=== PATIENT | male | born 1935 | race African-American/Black ===

== ENCOUNTER 2018-10-12 15:11 | Inpatient (IN) ==
[2018-10-12] MEDS ORDERED: SODIUM CHLORIDE 0.9% 500 ML IV STA (15:32)
[2018-10-12] MEDS ORDERED: PANTOPRAZOLE 40 MG VIAL IV STA (15:32)
[2018-10-12] MEDS ORDERED: SODIUM CHLORIDE 0.9% 1,000 ML IV PRN (15:33)
[2018-10-12 15:58] LABS: Basophils % 0.6 % (0.0-0.8); Eosinophils % 0.6 % (0.00-10.9); Hematocrit 19.1 VOL% (42.0-52.0); Immature Granulocytes % 0.8 %; Immature Granulocytes Absolute 0.03 #; Lymphocytes # 0.6 10*3/uL (1.4-4.0); Mean Corpuscular HGB Conc 32.5 GM/DL (32-36); Mean Corpuscular Hemoglobin 33 PG (27-34); Mean Corpuscular Volume 101.1 FL (87-102); Mean Platelet Volume 11.5 FL (9.6-12.0); Monocytes # 0.3 10*3/uL (0.11-0.8); Neutrophils # 2.6 10*3/uL (1.4-7.4); Platelet Count 111 T/CUMM (130-400); Red Blood Count 1.89 MC/CUMM (3.8-5.5); Red Cell Distribution Width 17.4 % (9.3-17.3); White Blood Count 3.6 T/CUMM (4-12)
[2018-10-12] MEDS ORDERED: ALUMINUM/MAGNES/SIMETH MAX STR 30 ML UDCUP PO PRN (16:00)
[2018-10-12] MEDS ORDERED: guaiFENesin 200 MG/10 ML UDCUP PO PRN (16:00)
[2018-10-12] MEDS ORDERED: ONDANSETRON 4 MG/2 ML VIAL IV PRN (16:00)
[2018-10-12] MEDS ORDERED: TEMAZEPAM 7.5 MG CAPSULE PO PRN (16:00)
[2018-10-12] MEDS ORDERED: chlorproMAZINE 25 MG TABLET PO PRN (16:00)
[2018-10-12] MEDS ORDERED: ACETAMINOPHEN 325 MG TABLET PO PRN (16:00)
[2018-10-12] MEDS ORDERED: BENZTROPINE 2 MG/2 ML AMP IV PRN (16:00)
[2018-10-12] MEDS ORDERED: MYLANTA/LIDO VISC 2:1 300 ML BOTTLE SWISH/SWAL PRN (16:00)
[2018-10-12] MEDS ORDERED: ALPRAZolam 0.25 MG TABLET PO PRN (16:00)
[2018-10-12] MEDS ORDERED: diphenhydrAMINE CAP 25 MG CAPSULE PO PRN (16:00)
[2018-10-12] MEDS ORDERED: MYLANTA/LIDO VISC 2:1 300 ML BOTTLE SWISH/SPIT PRN (16:00)
[2018-10-12 16:04] LABS: Hemoglobin 6.2 GM/DL (14.0-18.0); PT Patient Result 10.8 SECS
[2018-10-12 16:25] LABS: Albumin 2.7 G/DL (3.4-5.0); Bilirubin,Total 0.6 MG/DL (0.2-1.0); Calcium 8.1 MG/DL (8.5-10.1); Osmolality,Calculated 301.8 MOS/KG (273-304); Potassium 4.3 MMOL/L (3.5-5.1); Total Protein 5.8 G/DL (6.4-8.3)
[2018-10-12] MEDS ORDERED: SODIUM CHLORIDE 0.9% 1,000 ML IV STA (18:32)
[2018-10-12] MEDS: SODIUM CHLORIDE 0.9% 1,000 ML IV SCH (19:00)
[2018-10-12 20:17] LABS: Uric Acid 7.7 MG/DL (3.5-7.2)
[2018-10-13 06:15] LABS: Hemoglobin 7.2 GM/DL (14.0-18.0)
[2018-10-13] MEDS ORDERED: LIDOCAINE 100 MG/5 ML SYRINGE ONE (09:00)
[2018-10-13] MEDS ORDERED: PROPOFOL 200 MG/20 ML VIAL IV ONE (09:00)
[2018-10-13] MEDS ORDERED: PANTOPRAZOLE 40 MG VIAL IV SCH (09:30)
[2018-10-13] MEDS: SUCRALFATE 1 GM/10 ML UDCUP PO SCH ×3 (11:51→20:14)
[2018-10-13] MEDS: PANTOPRAZOLE 40 MG TABLET PO SCH (20:14)
[2018-10-13] MEDS: SODIUM CHLORIDE 0.9% 1,000 ML IV SCH (22:34)
[2018-10-14] MEDS: SODIUM CHLORIDE 0.9% 1,000 ML IV SCH (02:38)
[2018-10-14 05:36] LABS: Basophils % 0.8 % (0.0-0.8); Eosinophils # 0.2 10*3/uL (0.0-0.87); Eosinophils % 5.7 % (0.00-10.9); Hematocrit 21.2 VOL% (42.0-52.0); Immature Granulocytes % 0.8 %; Immature Granulocytes Absolute 0.02 #; Lymphocytes # 0.9 10*3/uL (1.4-4.0); Lymphocytes % 34.4 % (21.2-54.2); Mean Corpuscular HGB Conc 32.5 GM/DL (32-36); Mean Corpuscular Hemoglobin 31 PG (27-34); Mean Corpuscular Volume 96.4 FL (87-102); Mean Platelet Volume 11.4 FL (9.6-12.0); Monocytes # 0.4 10*3/uL (0.11-0.8); Monocytes % 13.7 % (1.7-12.7); NRBC # 0.03 10*3/uL; Neutrophils # 1.2 10*3/uL (1.4-7.4); Neutrophils % 44.6 % (38.7-73.9); Red Cell Distribution Width 19.5 % (9.3-17.3); White Blood Count 2.6 T/CUMM (4-12)
[2018-10-14 05:38] LABS: Hemoglobin 6.9 GM/DL (14.0-18.0); Platelet Count 72 T/CUMM (130-400)
[2018-10-14 05:56] LABS: Hypochromasia 1+; Ovalocytes Slight; Platelet Estimate Decreased
[2018-10-14] MEDS: SUCRALFATE 1 GM/10 ML UDCUP PO SCH (07:38)
[2018-10-14] MEDS ORDERED: SODIUM CHLORIDE 0.9% 1,000 ML IV PRN (08:19)
[2018-10-14] MEDS: PANTOPRAZOLE 40 MG TABLET PO SCH (08:59)
[2018-10-14 09:44] VITALS: BP 178/66
== END 2018-10-14 11:42 | disposition home or self-care (01) | DRG 378 ==
LOC: N.ED 15:11 → N.4E 15:59
PROVIDERS: ADMIT Specialist; ATTEND Specialist

== ENCOUNTER 2020-04-04 14:13 | Inpatient (IN) ==
[2020-04-04 14:59] LABS: Basophils % 0.2 % (0.0-0.8); Eosinophils % 0.2 % (0.00-10.9); Hematocrit 41.3 VOL% (42.0-52.0); Hemoglobin 13.4 GM/DL (14.0-18.0); Immature Granulocytes % 0.5 %; Immature Granulocytes Absolute 0.03 #; Lymphocytes # 0.6 10*3/uL (1.4-4.0); Mean Corpuscular HGB Conc 32.4 GM/DL (32-36); Mean Corpuscular Volume 91.6 FL (87-102); Mean Platelet Volume 12.3 FL (9.6-12.0); Monocytes % 6.5 % (1.7-12.7); Neutrophils % 82.6 % (38.7-73.9); Platelet Count 250 T/CUMM (130-400); Red Blood Count 4.51 MC/CUMM (3.8-5.5); Red Cell Distribution Width 17.2 % (9.3-17.3); White Blood Count 5.9 T/CUMM (4-12)
[2020-04-04 16:06] LABS: CKMB % 6.3 %
[2020-04-04 16:16] LABS: Troponin I 2.2 NG/ML (0.00-0.045)
[2020-04-04 16:29] LABS: Calcium 9.8 MG/DL (8.5-10.1)
[2020-04-04 16:35] LABS: Albumin 2.9 G/DL (3.4-5.0); Bilirubin,Total 0.5 MG/DL (0.2-1.0); Osmolality,Calculated 357.1 MOS/KG (273-304); Total Protein 8.9 G/DL (6.4-8.3)
[2020-04-04 16:49] LABS: Apearance,Urine CLEAR (Clear); Bilirubin,Urine Negative (Negative); Blood, Urine Negative (Negative); Glucose,Urine (UA) Negative (Negative); Ketones,Urine Negative (Negative); Mucus,Urine Occasional /LPF (Occasional); Nitrite,Urine Negative (Negative); Protein,Urine Negative; RBC,Urine 3 /HPF (0-4); Urine Color Yellow (Yellow); Urine Specific Gravity 1.015 (1.001-1.035); Urine Urobilinogen < 2.0 EU/DL (0.2-1.0); WBC,Urine 1 /HPF (0-6)
[2020-04-04] MEDS ORDERED: SODIUM CHLORIDE 0.9% 1,000 ML IV STA (17:10)
[2020-04-04] MEDS ORDERED: GLUCAGON 1 MG VIAL IM PRN (18:05)
[2020-04-04] MEDS ORDERED: ONDANSETRON 4 MG/2 ML VIAL IV PRN (18:05)
[2020-04-04] MEDS ORDERED: DEXTROSE 10% 250 ML BAG IV PRN (18:05)
[2020-04-04] MEDS ORDERED: SODIUM POLYSTYRENE SULFATE 15 GM/60 ML BOTTLE PO STA (18:05)
[2020-04-04 19:30] LABS: Thyroid Stimulating Hormone 1.73 uIU/ml (0.358-3.74)
[2020-04-04] MEDS: SODIUM BICARB INJ 100 MEQ in DEXTROSE 5% 1,000 ML IV SCH (21:25)
[2020-04-04] MEDS: HEPARIN 5,000 UNIT/1 ML VIAL SUBCUT SCH (21:46)
[2020-04-04] MEDS: ASPIRIN 325 MG TABLET PO SCH (21:47)
[2020-04-05 08:13] LABS: Ferritin 348.9 ng/ml (26-388)
[2020-04-05] MEDS: PANTOPRAZOLE 40 MG TABLET PO SCH (08:40)
[2020-04-05] MEDS: ASPIRIN 325 MG TABLET PO SCH (08:40)
[2020-04-05] MEDS: HEPARIN 5,000 UNIT/1 ML VIAL SUBCUT SCH ×2 (08:41→20:58)
[2020-04-05 09:07] LABS: CKMB % 5.3 %; Calcium 9.5 MG/DL (8.5-10.1); Osmolality,Calculated 368.6 MOS/KG (273-304)
[2020-04-05 09:08] LABS: Troponin I 1.3 NG/ML (0.00-0.045)
[2020-04-05 09:53] LABS: Basophils % 0.2 % (0.0-0.8); Eosinophils % 0.6 % (0.00-10.9); Hematocrit 35.1 VOL% (42.0-52.0); Hemoglobin 11.5 GM/DL (14.0-18.0); Immature Granulocytes % 0.6 %; Immature Granulocytes Absolute 0.03 #; Lymphocytes # 0.7 10*3/uL (1.4-4.0); Lymphocytes % 15.5 % (21.2-54.2); Mean Corpuscular HGB Conc 32.8 GM/DL (32-36); Mean Corpuscular Volume 91.4 FL (87-102); Mean Platelet Volume 10.9 FL (9.6-12.0); Monocytes % 6.9 % (1.7-12.7); Neutrophils % 76.2 % (38.7-73.9); Platelet Count 215 T/CUMM (130-400); Red Blood Count 3.84 MC/CUMM (3.8-5.5); White Blood Count 4.7 T/CUMM (4-12)
[2020-04-05 10:41] LABS: HIV Antigen/Antibody Result Nonreactive (Nonreactive); Hepatitis B Surface Ag Quant 0.13 Index; Hepatitis B Surface Ag Result Negative (Negative); Hepatitis C Virus Ab Quant 0.07 Index; Hepatitis C Virus Ab Result Negative (Negative)
[2020-04-05] MEDS: amLODIPine 10 MG TABLET PO SCH (12:43)
[2020-04-05] MEDS ORDERED: TUBERCULIN SKIN TEST 0.1 ML SYRINGE INTRADERM ONE (15:00)
[2020-04-05] MEDS: SODIUM BICARB INJ 50 MEQ in DEXTROSE 5% 1,000 ML IV SCH (15:56)
[2020-04-05] MEDS: SODIUM BICARB INJ 100 MEQ in DEXTROSE 5% 1,000 ML IV SCH (17:15)
[2020-04-05 21:15] LABS: Protein/Creatinine Ratio,Urine 0.4 RATIO
[2020-04-06] MEDS: SODIUM BICARB INJ 50 MEQ in DEXTROSE 5% 1,000 ML IV SCH ×3 (01:29→19:40)
[2020-04-06 06:14] LABS: Basophils % 0.4 % (0.0-0.8); Eosinophils % 0.9 % (0.00-10.9); Hematocrit 35.4 VOL% (42.0-52.0); Hemoglobin 11.4 GM/DL (14.0-18.0); Immature Granulocytes % 1.1 %; Immature Granulocytes Absolute 0.05 #; Lymphocytes # 0.6 10*3/uL (1.4-4.0); Lymphocytes % 12.3 % (21.2-54.2); Mean Corpuscular HGB Conc 32.2 GM/DL (32-36); Mean Corpuscular Volume 90.5 FL (87-102); Mean Platelet Volume 11.7 FL (9.6-12.0); Monocytes % 5.6 % (1.7-12.7); Neutrophils % 79.7 % (38.7-73.9); Platelet Count 211 T/CUMM (130-400); Red Blood Count 3.91 MC/CUMM (3.8-5.5); Red Cell Distribution Width 16.4 % (9.3-17.3); White Blood Count 4.7 T/CUMM (4-12)
[2020-04-06 06:41] LABS: Blood Urea Nitrogen 194 MG/DL (7-18); Calcium 8.9 MG/DL (8.5-10.1); Estimated Glom Filtration Rate 11 ML/MIN; Ferritin 366.5 ng/ml (26-388); Glucose 167 MG/DL (74-106); Osmolality,Calculated 354.8 MOS/KG (273-304)
[2020-04-06 06:43] LABS: Troponin I 0.618 NG/ML (0.00-0.045)
[2020-04-06] MEDS: amLODIPine 10 MG TABLET PO SCH (09:47)
[2020-04-06] MEDS: DEXAMETHASONE 4 MG TABLET PO SCH (09:47)
[2020-04-06] MEDS: ASPIRIN 325 MG TABLET PO SCH (09:47)
[2020-04-06] MEDS: PANTOPRAZOLE 40 MG TABLET PO SCH (09:47)
[2020-04-06] MEDS ORDERED: HEPARIN DRIP 25,000 UNITS/500 ML PREMIX IV SCH (10:00)
[2020-04-06] MEDS: carvediloL 3.125 MG TABLET PO SCH ×2 (11:27→20:21)
[2020-04-06] MEDS ORDERED: POTASSIUM CHLORIDE 20 MEQ/15 ML UDCUP PO ONE (12:00)
[2020-04-06 13:56] LABS: Osmolality, Serum 388 mOsm/kg (275 - 295)
[2020-04-06 14:41] LABS: Osmolality, Urine 512 mOsm/kg (150 - 1150)
[2020-04-06] MEDS: HEPARIN 5,000 UNIT/1 ML VIAL SUBCUT SCH (16:59)
[2020-04-07] MEDS: HEPARIN 5,000 UNIT/1 ML VIAL SUBCUT SCH ×3 (01:09→16:33)
[2020-04-07] MEDS: SODIUM BICARB INJ 50 MEQ in DEXTROSE 5% 1,000 ML IV SCH ×2 (04:05→11:41)
[2020-04-07 06:24] LABS: Calcium 7.9 MG/DL (8.5-10.1); Osmolality,Calculated 317.5 MOS/KG (273-304)
[2020-04-07 06:28] LABS: Ferritin 282.5 ng/ml (26-388)
[2020-04-07] MEDS: amLODIPine 10 MG TABLET PO SCH (09:01)
[2020-04-07] MEDS: PANTOPRAZOLE 40 MG TABLET PO SCH (09:01)
[2020-04-07] MEDS: carvediloL 3.125 MG TABLET PO SCH ×2 (09:01→20:40)
[2020-04-07] MEDS: ASPIRIN 325 MG TABLET PO SCH (09:02)
[2020-04-07] MEDS: SODIUM CHLORIDE 0.9% 1,000 ML IV SCH ×2 (14:11→21:05)
[2020-04-08] MEDS: HEPARIN 5,000 UNIT/1 ML VIAL SUBCUT SCH ×3 (00:40→16:50)
[2020-04-08 06:13] LABS: Calcium 7.1 MG/DL (8.5-10.1); Osmolality,Calculated 317.1 MOS/KG (273-304)
[2020-04-08 06:22] LABS: Ferritin 239.8 ng/ml (26-388)
[2020-04-08] MEDS: AZITHROMYCIN INJ 500 MG in SODIUM CHLORIDE 0.9% 250 ML IV SCH (09:33)
[2020-04-08] MEDS: carvediloL 3.125 MG TABLET PO SCH ×2 (09:34→21:35)
[2020-04-08] MEDS: PANTOPRAZOLE 40 MG TABLET PO SCH (09:34)
[2020-04-08] MEDS: SODIUM CHLORIDE 0.9% 1,000 ML IV SCH ×2 (09:34→22:30)
[2020-04-08] MEDS: ASPIRIN 325 MG TABLET PO SCH (09:34)
[2020-04-08] MEDS: amLODIPine 10 MG TABLET PO SCH (09:34)
[2020-04-08] MEDS ORDERED: POTASSIUM CHLORIDE 20 MEQ/15 ML UDCUP PO ONE (10:47)
[2020-04-09] MEDS: HEPARIN 5,000 UNIT/1 ML VIAL SUBCUT SCH ×3 (00:50→16:59)
[2020-04-09 06:02] LABS: Calcium 7.2 MG/DL (8.5-10.1); Osmolality,Calculated 315.5 MOS/KG (273-304)
[2020-04-09 07:04] LABS: Ferritin 213.8 ng/ml (26-388)
[2020-04-09] MEDS: amLODIPine 10 MG TABLET PO SCH (08:11)
[2020-04-09] MEDS: ASPIRIN 325 MG TABLET PO SCH (08:11)
[2020-04-09] MEDS: carvediloL 3.125 MG TABLET PO SCH ×2 (08:11→20:47)
[2020-04-09] MEDS: AZITHROMYCIN 250 MG TABLET PO SCH (08:29)
[2020-04-09] MEDS: AZITHROMYCIN INJ 500 MG in SODIUM CHLORIDE 0.9% 250 ML IV SCH (08:36)
[2020-04-09] MEDS: ACETAMINOPHEN 325 MG TABLET PO PRN ×2 (08:36→15:47)
[2020-04-09 11:48] LABS: Eosinophils # 0.1 10*3/uL (0.0-0.87); Eosinophils % 1.3 % (0.00-10.9); Immature Granulocytes % 1.6 %; Lymphocytes # 0.7 10*3/uL (1.4-4.0); Lymphocytes % 10.8 % (21.2-54.2); Mean Corpuscular HGB Conc 30.7 GM/DL (32-36); Mean Platelet Volume 11.4 FL (9.6-12.0); Monocytes % 6.5 % (1.7-12.7); Neutrophils % 79.8 % (38.7-73.9); Red Blood Count 1.68 MC/CUMM (3.8-5.5); Red Cell Distribution Width 15.9 % (9.3-17.3); White Blood Count 6.3 T/CUMM (4-12)
[2020-04-09 11:55] LABS: Hematocrit 16.3 VOL% (42.0-52.0); Platelet Count 105 T/CUMM (130-400)
[2020-04-09] MEDS ORDERED: SODIUM CHLORIDE 0.9% 1,000 ML IV PRN (12:05)
[2020-04-09] MEDS: SODIUM CHLORIDE 0.9% 1,000 ML IV SCH (12:41)
[2020-04-09] MEDS ORDERED: POTASSIUM CHLORIDE 20 MEQ/15 ML UDCUP PO ONE (15:57)
[2020-04-09] MEDS: ATORVASTATIN 40 MG TABLET PO SCH (20:47)
[2020-04-10] MEDS: HEPARIN 5,000 UNIT/1 ML VIAL SUBCUT SCH ×3 (02:21→16:06)
[2020-04-10 05:29] LABS: Basophils % 0.3 % (0.0-0.8); Eosinophils # 0.1 10*3/uL (0.0-0.87); Eosinophils % 1.3 % (0.00-10.9); Hematocrit 26.9 VOL% (42.0-52.0); Hemoglobin 8.7 GM/DL (14.0-18.0); Immature Granulocytes % 1.5 %; Immature Granulocytes Absolute 0.14 #; Lymphocytes % 10.6 % (21.2-54.2); Mean Corpuscular HGB Conc 32.3 GM/DL (32-36); Mean Corpuscular Volume 93.1 FL (87-102); Mean Platelet Volume 10.3 FL (9.6-12.0); Monocytes % 6.6 % (1.7-12.7); NRBC # 0.03 10*3/uL; Neutrophils % 79.7 % (38.7-73.9); Platelet Count 100 T/CUMM (130-400); Red Blood Count 2.89 MC/CUMM (3.8-5.5); Red Cell Distribution Width 16.5 % (9.3-17.3); White Blood Count 9.1 T/CUMM (4-12)
[2020-04-10 05:50] LABS: Hypochromasia Slight; Microcytosis 1+; Ovalocytes Slight
[2020-04-10 05:51] LABS: Platelet Estimate Decreased; Polychromasia Slight
[2020-04-10 06:23] LABS: % Iron Saturation 35.7 % (18-50); Ferritin 202.2 ng/ml (26-388)
[2020-04-10] MEDS: SODIUM CHLORIDE 0.9% 1,000 ML IV SCH ×2 (06:25→08:59)
[2020-04-10 06:30] LABS: Sedimentation Rate-Westergren 50 MM/HR (0-20)
[2020-04-10 07:04] LABS: Calcium 7.3 MG/DL (8.5-10.1)
[2020-04-10 07:11] LABS: Folate 1.8 NG/ML (5.4-24.0); Vitamin B12 279 PG/ML (211-911)
[2020-04-10] MEDS ORDERED: MAGNESIUM SULF RIDER 4 GM in PREMIX 1 EACH IV PRN (07:20)
[2020-04-10] MEDS ORDERED: MAGNESIUM SULF RIDER 2 GM in PREMIX 1 EACH IV PRN (07:20)
[2020-04-10] MEDS: amLODIPine 10 MG TABLET PO SCH (08:50)
[2020-04-10] MEDS: carvediloL 3.125 MG TABLET PO SCH (08:50)
[2020-04-10] MEDS: AZITHROMYCIN 250 MG TABLET PO SCH (08:50)
[2020-04-10] MEDS ORDERED: POTASSIUM CHLORIDE 20 MEQ TABLET PO ONE (09:00)
[2020-04-10 09:11] LABS: Hemoglobin A1 (Alkaline) 97.2 % (96.5-98.5); Hemoglobin A2 (Alkaline) 2.8 % (1.5-3.5)
[2020-04-10] MEDS: POLYETHYLENE GLYCOL POWDER 17 GM PACK PO SCH (20:15)
[2020-04-10] MEDS: FOLIC ACID 1 MG TABLET PO SCH (20:15)
[2020-04-10] MEDS: DOCUSATE SODIUM 100 MG CAPSULE PO SCH (20:15)
[2020-04-10] MEDS: ATORVASTATIN 40 MG TABLET PO SCH (20:15)
[2020-04-10] MEDS: carvediloL 6.25 MG TABLET PO SCH (20:15)
[2020-04-11 05:34] LABS: Basophils % 0.3 % (0.0-0.8); Eosinophils # 0.1 10*3/uL (0.0-0.87); Eosinophils % 1.2 % (0.00-10.9); Hematocrit 21.2 VOL% (42.0-52.0); Hemoglobin 6.9 GM/DL (14.0-18.0); Immature Granulocytes % 1.2 %; Immature Granulocytes Absolute 0.09 #; Lymphocytes # 0.9 10*3/uL (1.4-4.0); Lymphocytes % 12.5 % (21.2-54.2); Mean Corpuscular HGB Conc 32.5 GM/DL (32-36); Mean Corpuscular Volume 92.2 FL (87-102); Mean Platelet Volume 11.2 FL (9.6-12.0); Monocytes % 7.6 % (1.7-12.7); NRBC # 0.03 10*3/uL; Neutrophils % 77.2 % (38.7-73.9); Platelet Count 83 T/CUMM (130-400); Red Cell Distribution Width 16.4 % (9.3-17.3); White Blood Count 7.5 T/CUMM (4-12)
[2020-04-11 05:55] LABS: Calcium 7.1 MG/DL (8.5-10.1); Osmolality,Calculated 304.1 MOS/KG (273-304)
[2020-04-11 06:03] LABS: Eosinophils 1 % (0-10); Lymphocytes 16 % (20-55); Segmented Neutrophils 76 % (50-85); Total Cells Counted 100
[2020-04-11 06:04] LABS: Hypochromasia 2+; Microcytosis 1+; Platelet Estimate Decreased
[2020-04-11] MEDS: AZITHROMYCIN 250 MG TABLET PO SCH (08:45)
[2020-04-11] MEDS: DOCUSATE SODIUM 100 MG CAPSULE PO SCH ×2 (08:45→21:07)
[2020-04-11] MEDS: CYANOCOBALAMIN 500 MCG TABLET PO SCH (08:46)
[2020-04-11] MEDS: amLODIPine 10 MG TABLET PO SCH (08:46)
[2020-04-11] MEDS: POLYETHYLENE GLYCOL POWDER 17 GM PACK PO SCH ×3 (08:46→21:08)
[2020-04-11] MEDS: carvediloL 6.25 MG TABLET PO SCH ×2 (08:46→21:07)
[2020-04-11] MEDS: FOLIC ACID 1 MG TABLET PO SCH ×2 (08:46→21:07)
[2020-04-11] MEDS: HEPARIN 5,000 UNIT/1 ML VIAL SUBCUT SCH ×3 (08:46→16:56)
[2020-04-11] MEDS: SODIUM CHLORIDE 0.9% 1,000 ML IV SCH ×2 (12:37)
[2020-04-11] MEDS: LACTULOSE 20 GM/30 ML UDCUP PO SCH ×3 (14:59→23:09)
[2020-04-11] MEDS ORDERED: MAGNESIUM SULF RIDER 2 GM in PREMIX 1 EACH IV ONE (15:00)
[2020-04-11] MEDS ORDERED: BISACODYL 10 MG SUPP RECTAL ONE (15:00)
[2020-04-11] MEDS: ATORVASTATIN 40 MG TABLET PO SCH (21:07)
[2020-04-12] MEDS: HEPARIN 5,000 UNIT/1 ML VIAL SUBCUT SCH ×2 (01:32→09:11)
[2020-04-12] MEDS: SODIUM CHLORIDE 0.9% 1,000 ML IV SCH ×2 (03:02→19:15)
[2020-04-12] MEDS: LACTULOSE 20 GM/30 ML UDCUP PO SCH ×3 (03:02→11:05)
[2020-04-12] MEDS: DOCUSATE SODIUM 100 MG CAPSULE PO SCH ×2 (08:15→20:10)
[2020-04-12] MEDS: CYANOCOBALAMIN 500 MCG TABLET PO SCH (08:15)
[2020-04-12] MEDS: FOLIC ACID 1 MG TABLET PO SCH ×2 (08:15→20:10)
[2020-04-12] MEDS: amLODIPine 10 MG TABLET PO SCH (08:15)
[2020-04-12] MEDS: AZITHROMYCIN 250 MG TABLET PO SCH (08:15)
[2020-04-12] MEDS: carvediloL 6.25 MG TABLET PO SCH ×2 (08:15→20:10)
[2020-04-12] MEDS: POLYETHYLENE GLYCOL POWDER 17 GM PACK PO SCH (08:15)
[2020-04-12 08:24] LABS: Immuno Free Light Chain Kappa 9.45 MG/DL (0.33-1.94); Immuno Free Light Chain Lambda 4.66 MG/DL (0.57-2.63); Immuno Free Light Chain Ratio 2.03 MG/DL (0.26-1.65)
[2020-04-12 09:47] LABS: Basophils % 0.1 % (0.0-0.8); Eosinophils % 0.5 % (0.00-10.9); Hematocrit 19.5 VOL% (42.0-52.0); Immature Granulocytes % 0.9 %; Immature Granulocytes Absolute 0.07 #; Lymphocytes # 0.8 10*3/uL (1.4-4.0); Mean Corpuscular HGB Conc 32.3 GM/DL (32-36); Mean Corpuscular Volume 96.1 FL (87-102); Mean Platelet Volume 12.3 FL (9.6-12.0); Monocytes % 7.3 % (1.7-12.7); NRBC # 0.02 10*3/uL; Neutrophils % 80.2 % (38.7-73.9); Red Blood Count 2.03 MC/CUMM (3.8-5.5); Red Cell Distribution Width 16.3 % (9.3-17.3); White Blood Count 7.7 T/CUMM (4-12)
[2020-04-12 09:52] LABS: Hemoglobin 6.3 GM/DL (14.0-18.0)
[2020-04-12 09:53] LABS: Platelet Count 88 T/CUMM (130-400)
[2020-04-12 10:53] LABS: Hypochromasia 1+; Microcytosis Slight; Ovalocytes Slight; Platelet Estimate Decreased
[2020-04-12] MEDS ORDERED: SODIUM CHLORIDE 0.9% 1,000 ML IV PRN (13:26)
[2020-04-12] MEDS: PANTOPRAZOLE 40 MG TABLET PO SCH (16:43)
[2020-04-12] MEDS: ATORVASTATIN 40 MG TABLET PO SCH (20:10)
[2020-04-12 23:50] LABS: Hematocrit 26.4 VOL% (42.0-52.0); Hemoglobin 8.5 GM/DL (14.0-18.0)
[2020-04-13 05:17] LABS: Basophils % 0.2 % (0.0-0.8); Eosinophils % 0.2 % (0.00-10.9); Hematocrit 26.3 VOL% (42.0-52.0); Hemoglobin 8.6 GM/DL (14.0-18.0); Immature Granulocytes % 0.5 %; Immature Granulocytes Absolute 0.03 #; Lymphocytes # 0.7 10*3/uL (1.4-4.0); Lymphocytes % 11.2 % (21.2-54.2); Mean Corpuscular HGB Conc 32.7 GM/DL (32-36); Mean Corpuscular Volume 92.6 FL (87-102); Mean Platelet Volume 11.4 FL (9.6-12.0); Monocytes % 8.4 % (1.7-12.7); Neutrophils % 79.5 % (38.7-73.9); Red Blood Count 2.84 MC/CUMM (3.8-5.5); Red Cell Distribution Width 15.5 % (9.3-17.3); White Blood Count 6.3 T/CUMM (4-12)
[2020-04-13 05:21] LABS: Platelet Count 75 T/CUMM (130-400)
[2020-04-13] MEDS: SODIUM CHLORIDE 0.9% 1,000 ML IV SCH ×3 (05:32→20:31)
[2020-04-13 05:36] LABS: Osmolality,Calculated 292.3 MOS/KG (273-304)
[2020-04-13] MEDS ORDERED: SODIUM CHLORIDE 0.9% 1,000 ML IV SCH (08:00)
[2020-04-13] MEDS ORDERED: propofoL 200 MG/20 ML VIAL IV ONE (09:00)
[2020-04-13] MEDS ORDERED: LIDOCAINE 2% 5 ML VIAL ONE (09:00)
[2020-04-13] MEDS: PANTOPRAZOLE 40 MG TABLET PO SCH ×2 (10:51→20:31)
[2020-04-13] MEDS: CYANOCOBALAMIN 500 MCG TABLET PO SCH (10:52)
[2020-04-13] MEDS: DOCUSATE SODIUM 100 MG CAPSULE PO SCH ×2 (10:52→20:30)
[2020-04-13] MEDS: DEXAMETHASONE 4 MG TABLET PO SCH (10:52)
[2020-04-13] MEDS: FOLIC ACID 1 MG TABLET PO SCH ×2 (10:52→20:31)
[2020-04-13] MEDS: amLODIPine 10 MG TABLET PO SCH (10:52)
[2020-04-13] MEDS: carvediloL 12.5 MG TABLET PO SCH ×2 (11:54→20:31)
[2020-04-13] MEDS: carvediloL 6.25 MG TABLET PO SCH (12:48)
[2020-04-13] MEDS: ATORVASTATIN 40 MG TABLET PO SCH (20:31)
[2020-04-14 05:37] LABS: Basophils % 0.1 % (0.0-0.8); Hematocrit 24.3 VOL% (42.0-52.0); Hemoglobin 7.9 GM/DL (14.0-18.0); Immature Granulocytes % 0.4 %; Immature Granulocytes Absolute 0.03 #; Lymphocytes # 0.5 10*3/uL (1.4-4.0); Lymphocytes % 5.8 % (21.2-54.2); Mean Corpuscular HGB Conc 32.5 GM/DL (32-36); Mean Corpuscular Volume 93.8 FL (87-102); Mean Platelet Volume 11.8 FL (9.6-12.0); Monocytes % 5.3 % (1.7-12.7); Neutrophils % 88.4 % (38.7-73.9); Red Blood Count 2.59 MC/CUMM (3.8-5.5); Red Cell Distribution Width 15.2 % (9.3-17.3); White Blood Count 8.5 T/CUMM (4-12)
[2020-04-14] MEDS: SODIUM CHLORIDE 0.9% 1,000 ML IV SCH ×2 (05:41→10:13)
[2020-04-14 06:08] LABS: Calcium 6.9 MG/DL (8.5-10.1); Osmolality,Calculated 290.5 MOS/KG (273-304)
[2020-04-14 06:16] LABS: Platelet Count 75 T/CUMM (130-400)
[2020-04-14 06:19] LABS: Hypochromasia Slight; Microcytosis 1+; Ovalocytes Few; Platelet Estimate Decreased; Polychromasia Slight
[2020-04-14] MEDS: CYANOCOBALAMIN 500 MCG TABLET PO SCH (08:41)
[2020-04-14] MEDS: DOCUSATE SODIUM 100 MG CAPSULE PO SCH ×2 (08:41→20:39)
[2020-04-14] MEDS: FOLIC ACID 1 MG TABLET PO SCH ×2 (08:41→20:39)
[2020-04-14] MEDS: carvediloL 12.5 MG TABLET PO SCH ×2 (08:41→20:39)
[2020-04-14] MEDS: PANTOPRAZOLE 40 MG TABLET PO SCH ×2 (08:41→20:40)
[2020-04-14] MEDS: amLODIPine 10 MG TABLET PO SCH (08:41)
[2020-04-14] MEDS ORDERED: CYANOCOBALAMIN 1000 MCG/1 ML VIAL IM ONE (14:12)
[2020-04-14] MEDS: SODIUM CHLORIDE 23.4% CONC INJ 38.5 MEQ, SODIUM BICARB INJ 100 MEQ in STERILE WATER INJ... IV SCH (18:30)
[2020-04-14] MEDS: ATORVASTATIN 40 MG TABLET PO SCH (20:39)
[2020-04-15 05:38] LABS: Basophils % 0.2 % (0.0-0.8); Eosinophils % 0.3 % (0.00-10.9); Hematocrit 22.6 VOL% (42.0-52.0); Hemoglobin 7.4 GM/DL (14.0-18.0); Immature Granulocytes % 0.5 %; Immature Granulocytes Absolute 0.03 #; Lymphocytes # 0.9 10*3/uL (1.4-4.0); Lymphocytes % 13.8 % (21.2-54.2); Mean Corpuscular HGB Conc 32.7 GM/DL (32-36); Mean Platelet Volume 11.4 FL (9.6-12.0); Monocytes % 8.1 % (1.7-12.7); Neutrophils % 77.1 % (38.7-73.9); Red Blood Count 2.43 MC/CUMM (3.8-5.5); Red Cell Distribution Width 15.9 % (9.3-17.3); White Blood Count 6.2 T/CUMM (4-12)
[2020-04-15 05:40] LABS: Platelet Count 69 T/CUMM (130-400)
[2020-04-15 05:57] LABS: Calcium 6.6 MG/DL (8.5-10.1); Osmolality,Calculated 288.3 MOS/KG (273-304)
[2020-04-15 07:10] LABS: Hypochromasia Slight; Microcytosis 1+; Ovalocytes Slight; Platelet Estimate Decreased
[2020-04-15] MEDS: FOLIC ACID 1 MG TABLET PO SCH ×2 (08:21→20:58)
[2020-04-15] MEDS: PANTOPRAZOLE 40 MG TABLET PO SCH ×2 (08:21→20:58)
[2020-04-15] MEDS: DOCUSATE SODIUM 100 MG CAPSULE PO SCH ×2 (08:21→20:57)
[2020-04-15] MEDS: amLODIPine 10 MG TABLET PO SCH (08:21)
[2020-04-15] MEDS: carvediloL 12.5 MG TABLET PO SCH ×2 (08:21→20:58)
[2020-04-15] MEDS: CYANOCOBALAMIN 500 MCG TABLET PO SCH (08:21)
[2020-04-15] MEDS: SODIUM CHLORIDE 23.4% CONC INJ 38.5 MEQ, SODIUM BICARB INJ 100 MEQ in STERILE WATER INJ... IV SCH (10:06)
[2020-04-15] MEDS ORDERED: SODIUM CHLORIDE 0.9% 1,000 ML IV PRN (10:22)
[2020-04-15] MEDS: ACETAMINOPHEN 325 MG TABLET PO PRN (17:20)
[2020-04-15 17:29] LABS: Hematocrit 26.1 VOL% (42.0-52.0); Hemoglobin 8.3 GM/DL (14.0-18.0)
[2020-04-15] MEDS: ATORVASTATIN 40 MG TABLET PO SCH (20:58)
[2020-04-15] MEDS: CALCIUM CARBONATE CHEW 500 MG TABLET PO SCH (20:58)
[2020-04-16] MEDS: SODIUM CHLORIDE 23.4% CONC INJ 38.5 MEQ, SODIUM BICARB INJ 100 MEQ in STERILE WATER INJ... IV SCH (01:09)
[2020-04-16 06:01] LABS: Calcium 6.7 MG/DL (8.5-10.1); Osmolality,Calculated 292.1 MOS/KG (273-304)
[2020-04-16] MEDS: DOCUSATE SODIUM 100 MG CAPSULE PO SCH (08:37)
[2020-04-16] MEDS: PANTOPRAZOLE 40 MG TABLET PO SCH (08:37)
[2020-04-16] MEDS: CALCIUM CARBONATE CHEW 500 MG TABLET PO SCH (08:37)
[2020-04-16] MEDS: FOLIC ACID 1 MG TABLET PO SCH (08:37)
[2020-04-16] MEDS: amLODIPine 10 MG TABLET PO SCH (08:37)
[2020-04-16] MEDS: carvediloL 12.5 MG TABLET PO SCH (08:37)
[2020-04-16] MEDS: CYANOCOBALAMIN 500 MCG TABLET PO SCH (08:37)
[2020-04-16 12:00] VITALS: BP 134/47
[2020-04-16 14:02] LABS: Basophils % 0.2 % (0.0-0.8); Eosinophils % 0.6 % (0.00-10.9); Hematocrit 24.1 VOL% (42.0-52.0); Hemoglobin 7.9 GM/DL (14.0-18.0); Immature Granulocytes % 0.4 %; Immature Granulocytes Absolute 0.02 #; Lymphocytes # 0.8 10*3/uL (1.4-4.0); Lymphocytes % 15.5 % (21.2-54.2); Mean Corpuscular HGB Conc 32.8 GM/DL (32-36); Mean Corpuscular Volume 92.7 FL (87-102); Mean Platelet Volume 10.5 FL (9.6-12.0); Monocytes % 8.9 % (1.7-12.7); Neutrophils % 74.4 % (38.7-73.9); Platelet Count 77 T/CUMM (130-400); Red Cell Distribution Width 17.1 % (9.3-17.3); White Blood Count 5.3 T/CUMM (4-12)
[2020-04-16 20:09] LABS: Anisocytosis 1+; Microcytosis 1+; Poikilocytosis Slight
[2020-04-16 20:10] LABS: Platelet Estimate Normal
== END 2020-04-16 14:55 | disposition swing bed (61) | DRG 177 ==
LOC: EDBD → EDUNIT# → N.ED 14:13 → N.EDINP 17:26 → SUATTDRO 17:26 → N.2E 19:31
PROVIDERS: ADMIT Internal Medicine; ATTEND Hospitalist

== ENCOUNTER 2022-10-20 08:27 | Inpatient (IN) ==
[2022-10-20] MEDS ORDERED: methylPREDNISolone SOD SUC 125 MG/2 ML VIAL IV STA (08:37)
[2022-10-20] MEDS ORDERED: FUROSEMIDE 40 MG/4 ML VIAL IV STA (08:40)
[2022-10-20] MEDS ORDERED: ETOMIDATE 20 MG/10 ML VIAL IV ONE (08:52)
[2022-10-20 08:57] LABS: Basophils % 0.2 % (0.0-0.8); Eosinophils % 0.3 % (0.00-10.9); Hematocrit 42.5 VOL% (42.0-52.0); Hemoglobin 12.9 GM/DL (14.0-18.0); Immature Granulocytes % 0.6 %; Immature Granulocytes Absolute 0.07 #; Lymphocytes # 3.6 10*3/uL (1.4-4.0); Lymphocytes % 29.3 % (21.2-54.2); Mean Corpuscular HGB Conc 30.4 GM/DL (32-36); Mean Corpuscular Volume 100.7 FL (87-102); Mean Platelet Volume 10.4 FL (9.6-12.0); Monocytes # 0.9 10*3/uL (0.11-0.8); Monocytes % 7.2 % (1.7-12.7); Neutrophils % 62.4 % (38.7-73.9); Platelet Count 300 T/CUMM (130-400); Red Blood Count 4.22 MC/CUMM (3.8-5.5); White Blood Count 12.3 T/CUMM (4-12)
[2022-10-20] MEDS ORDERED: ALBUTEROL NEB SOLN 5 MG/ML 20 ML/BOTTLE CONT NEB SCH (09:00)
[2022-10-20] MEDS ORDERED: ROCURONIUM 100 MG/10 ML VIAL IV STA (09:03)
[2022-10-20 09:08] LABS: INR 0.9; Partial Thromboplastin Time 20.8 SECS (23.7-32.9)
[2022-10-20 09:14] LABS: Albumin 3.8 G/DL (3.4-5.0); Bilirubin,Total 0.4 MG/DL (0.20-1.00); Calcium 7.9 MG/DL (8.5-10.1); Potassium 4.5 MMOL/L (3.5-5.1); Total Protein 7.6 G/DL (6.4-8.2)
[2022-10-20 09:35] LABS: Arterial Base Excess iSTAT -2 MMOL/L (-2.5-2.5); Arterial Bicarbonate iSTAT 25.3 MMOL/L (20-26); Arterial O2 Saturation iSTAT 100 % (95-100); Arterial PCO2 iSTAT 55 MM HG (35-48); Arterial PO2 iSTAT 479 MM HG (80-95); Arterial Total CO2 iSTAT 27 MMO/L (23-27); Arterial pH iSTAT 7.271 (7.35-7.45)
[2022-10-20] MEDS ORDERED: ALBUTEROL 2.5 MG/3 ML NEB RESP TX PRN (10:20)
[2022-10-20] MEDS ORDERED: ONDANSETRON 4 MG/2 ML VIAL IV PRN (10:22)
[2022-10-20] MEDS ORDERED: carvediloL 12.5 MG TABLET PO STA (10:28)
[2022-10-20] MEDS ORDERED: ENOXAPARIN 30 MG/0.3 ML SYRINGE SUBCUT SCH (10:30)
[2022-10-20] MEDS ORDERED: hydrALAZINE 20 MG/1 ML VIAL IV STA (10:49)
[2022-10-20] MEDS: FAMOTIDINE 20 MG/2 ML VIAL IV SCH ×2 (11:07→22:17)
[2022-10-20] MEDS ORDERED: MIDAZOLAM 2 MG/2 ML VIAL IV ONE (13:01)
[2022-10-20] MEDS ORDERED: MIDAZOLAM 2 MG/2 ML VIAL ONE (13:02)
[2022-10-20] MEDS ORDERED: LABETALOL 20 MG/4 ML SYRINGE IV ONE (13:53)
[2022-10-20] MEDS ORDERED: MIDAZOLAM DRIP 100 MG/100 ML PREMIX IV PRN (13:54)
[2022-10-20] MEDS ORDERED: hydrALAZINE 20 MG/1 ML VIAL IV ONE (14:09)
[2022-10-20] MEDS: APIXABAN 5 MG TABLET PO SCH ×2 (14:39→20:22)
[2022-10-20 15:08] LABS: ABG Base Excess -4.6 MMOL/L (-2.5-2.5); ABG HCO3 20.7 MMOL/L (20-26); ABG Oxygen Saturation 99.1 % (95-100); ABG PCO2 39.6 MM HG (35-48); ABG PH 7.333 (7.35-7.45); ABG TCO2 18.3 MMOL/L (23-27)
[2022-10-20] MEDS ORDERED: INFLUENZA VIRUS VACCINE 0.5 ML SYRINGE IM ONE (15:42)
[2022-10-21 04:02] LABS: Hematocrit 33.1 VOL% (42.0-52.0); Hemoglobin 10.8 GM/DL (14.0-18.0); Immature Granulocytes % 0.3 %; Immature Granulocytes Absolute 0.03 #; Lymphocytes # 0.6 10*3/uL (1.4-4.0); Lymphocytes % 6.3 % (21.2-54.2); Mean Corpuscular HGB Conc 32.6 GM/DL (32-36); Mean Corpuscular Volume 94.3 FL (87-102); Mean Platelet Volume 10.8 FL (9.6-12.0); Monocytes # 0.7 10*3/uL (0.11-0.8); Monocytes % 6.6 % (1.7-12.7); Neutrophils % 86.8 % (38.7-73.9); Platelet Count 206 T/CUMM (130-400); Red Blood Count 3.51 MC/CUMM (3.8-5.5); Red Cell Distribution Width 16.8 % (9.3-17.3); White Blood Count 9.9 T/CUMM (4-12)
[2022-10-21 04:09] LABS: ABG Base Excess -1.2 MMOL/L (-2.5-2.5); ABG HCO3 23.4 MMOL/L (20-26); ABG Oxygen Saturation 99.9 % (95-100); ABG PCO2 21.7 MM HG (35-48); ABG PH 7.558 (7.35-7.45); ABG TCO2 17.1 MMOL/L (23-27)
[2022-10-21 04:12] LABS: PT Patient Result 11.1 SECS (10.1-12.1)
[2022-10-21 04:55] LABS: Albumin 2.8 G/DL (3.4-5.0); Bilirubin,Total 0.6 MG/DL (0.20-1.00); Calcium 7.8 MG/DL (8.5-10.1); Osmolality,Calculated 291.3 MOS/KG (273-304); Potassium 4.8 MMOL/L (3.5-5.1); Risk Ratio 2.53; Thyroid Stimulating Hormone 0.402 uIU/ml (0.358-3.74); Total Protein 6.1 G/DL (6.4-8.2); VLDL Cholesterol 33.6 MG/DL
[2022-10-21] MEDS: hydrALAZINE 20 MG/1 ML VIAL IV PRN (05:30)
[2022-10-21] MEDS ORDERED: ALBUMIN 25% 25 GM/100 ML VIAL IV ONE (08:57)
[2022-10-21] MEDS ORDERED: FUROSEMIDE 40 MG/4 ML VIAL IV ONE (08:57)
[2022-10-21] MEDS ORDERED: carvediloL 12.5 MG TABLET PO SCH (09:00)
[2022-10-21 10:01] LABS: Bilirubin,Urine Negative (Negative); Blood, Urine Trace mg/dL (Negative); Glucose,Urine (UA) Negative (Negative); Ketones,Urine Negative (Negative); Nitrite,Urine Negative (Negative); Protein,Urine Trace mg/dL (Negative); RBC,Urine 4 /HPF (0-4); Urine Appearance Clear (Clear); Urine Color Yellow (Yellow); Urine Specific Gravity 1.015 (1.001-1.035); Urine Urobilinogen 0.2 eU/dL (<2.0); Urine pH 7.5 (4.5-8.0)
[2022-10-21] MEDS: FAMOTIDINE 20 MG/2 ML VIAL IV SCH ×2 (10:01→22:40)
[2022-10-21] MEDS: APIXABAN 5 MG TABLET PO SCH ×2 (10:02→20:00)
[2022-10-21] MEDS: amLODIPine 10 MG TABLET PO SCH (10:03)
[2022-10-21 10:07] LABS: Barbiturates Screen,Urine Negative (Negative); Benzodiazepines Screen,Urine Positive (Negative); Cannabinoid Screen,Urine Negative (Negative); Opiate Screen,Urine Positive (Negative); Phencyclidine Screen,Urine Negative (Negative)
[2022-10-21 11:25] LABS: ABG Base Excess -1.6 MMOL/L (-2.5-2.5); ABG HCO3 23.1 MMOL/L (20-26); ABG Oxygen Saturation 99.6 % (95-100); ABG PCO2 28.9 MM HG (35-48); ABG PH 7.472 (7.35-7.45); ABG TCO2 19.2 MMOL/L (23-27)
[2022-10-21] MEDS: carvediloL 12.5 MG TABLET PO SCH (17:10)
[2022-10-22 03:27] LABS: Hematocrit 31.4 VOL% (42.0-52.0); Hemoglobin 10.1 GM/DL (14.0-18.0); Immature Granulocytes % 0.5 %; Immature Granulocytes Absolute 0.04 #; Lymphocytes # 0.7 10*3/uL (1.4-4.0); Lymphocytes % 8.8 % (21.2-54.2); Mean Corpuscular HGB Conc 32.2 GM/DL (32-36); Mean Corpuscular Volume 96.9 FL (87-102); Mean Platelet Volume 9.3 FL (9.6-12.0); Monocytes # 0.7 10*3/uL (0.11-0.8); Monocytes % 8.4 % (1.7-12.7); Neutrophils % 82.3 % (38.7-73.9); Platelet Count 183 T/CUMM (130-400); Red Blood Count 3.24 MC/CUMM (3.8-5.5)
[2022-10-22 03:30] LABS: ABG Base Excess -2.7 MMOL/L (-2.5-2.5); ABG HCO3 22.2 MMOL/L (20-26); ABG Oxygen Saturation 99.3 % (95-100); ABG PCO2 33.2 MM HG (35-48); ABG PH 7.413 (7.35-7.45); ABG TCO2 19.3 MMOL/L (23-27)
[2022-10-22 03:47] LABS: Albumin 3.1 G/DL (3.4-5.0); Bilirubin,Total 0.5 MG/DL (0.20-1.00); Calcium 7.6 MG/DL (8.5-10.1); Osmolality,Calculated 301.1 MOS/KG (273-304); Potassium 4.4 MMOL/L (3.5-5.1); Total Protein 6.2 G/DL (6.4-8.2)
[2022-10-22 03:56] LABS: Phosphorous 4.3 MG/DL (2.5-4.9)
[2022-10-22] MEDS: carvediloL 12.5 MG TABLET PO SCH ×3 (07:52→17:05)
[2022-10-22] MEDS: APIXABAN 5 MG TABLET PO SCH ×2 (08:04→21:02)
[2022-10-22] MEDS: amLODIPine 10 MG TABLET PO SCH (08:04)
[2022-10-22] MEDS ORDERED: POLYETHYLENE GLYCOL POWDER 17 GM PACK PO PRN (09:40)
[2022-10-22] MEDS: FAMOTIDINE 20 MG/2 ML VIAL IV SCH ×2 (09:54→21:39)
[2022-10-22] MEDS: DOCUSATE SODIUM 100 MG/10 ML UDCUP PO SCH (21:02)
[2022-10-23 05:00] LABS: ABG Base Excess -2.7 MMOL/L (-2.5-2.5); ABG HCO3 22.1 MMOL/L (20-26); ABG PCO2 35.2 MM HG (35-48); ABG PH 7.396 (7.35-7.45); ABG TCO2 19.6 MMOL/L (23-27)
[2022-10-23 05:07] LABS: Basophils % 0.3 % (0.0-0.8); Eosinophils % 0.1 % (0.00-10.9); Hematocrit 33.9 VOL% (42.0-52.0); Hemoglobin 10.4 GM/DL (14.0-18.0); Immature Granulocytes % 0.6 %; Immature Granulocytes Absolute 0.04 #; Lymphocytes # 0.8 10*3/uL (1.4-4.0); Lymphocytes % 11.5 % (21.2-54.2); Mean Corpuscular HGB Conc 30.7 GM/DL (32-36); Mean Corpuscular Volume 100.9 FL (87-102); Mean Platelet Volume 10.2 FL (9.6-12.0); Monocytes # 0.8 10*3/uL (0.11-0.8); Monocytes % 10.4 % (1.7-12.7); Neutrophils % 77.1 % (38.7-73.9); Platelet Count 197 T/CUMM (130-400); Red Blood Count 3.36 MC/CUMM (3.8-5.5); Red Cell Distribution Width 16.9 % (9.3-17.3); White Blood Count 7.2 T/CUMM (4-12)
[2022-10-23 05:23] LABS: Calcium 7.8 MG/DL (8.5-10.1); Osmolality,Calculated 309.8 MOS/KG (273-304); Potassium 4.6 MMOL/L (3.5-5.1)
[2022-10-23] MEDS: APIXABAN 5 MG TABLET PO SCH ×2 (08:44→20:13)
[2022-10-23] MEDS: amLODIPine 10 MG TABLET PO SCH (08:44)
[2022-10-23] MEDS: carvediloL 25 MG TABLET PO SCH ×2 (08:44→18:08)
[2022-10-23] MEDS: DOXAZOSIN 1 MG TABLET PO SCH (08:44)
[2022-10-23] MEDS: DOCUSATE SODIUM 100 MG/10 ML UDCUP PO SCH ×2 (08:44→20:11)
[2022-10-23] MEDS: hydrALAZINE 20 MG/1 ML VIAL IV PRN (11:15)
[2022-10-23] MEDS: FAMOTIDINE 20 MG/2 ML VIAL IV SCH ×2 (12:05→21:42)
[2022-10-24 03:55] LABS: ABG Base Excess -4.2 MMOL/L (-2.5-2.5); ABG HCO3 20.9 MMOL/L (20-26); ABG PCO2 35.8 MM HG (35-48); ABG PH 7.367 (7.35-7.45); ABG TCO2 18.8 MMOL/L (23-27)
[2022-10-24 03:56] LABS: Basophils % 0.2 % (0.0-0.8); Eosinophils % 0.1 % (0.00-10.9); Hematocrit 32.5 VOL% (42.0-52.0); Immature Granulocytes % 0.6 %; Immature Granulocytes Absolute 0.05 #; Lymphocytes # 0.7 10*3/uL (1.4-4.0); Mean Corpuscular HGB Conc 30.8 GM/DL (32-36); Mean Corpuscular Volume 101.2 FL (87-102); Mean Platelet Volume 10.4 FL (9.6-12.0); Monocytes # 0.6 10*3/uL (0.11-0.8); Monocytes % 7.8 % (1.7-12.7); Neutrophils % 82.3 % (38.7-73.9); Platelet Count 186 T/CUMM (130-400); Red Blood Count 3.21 MC/CUMM (3.8-5.5); Red Cell Distribution Width 16.5 % (9.3-17.3); White Blood Count 8.2 T/CUMM (4-12)
[2022-10-24 04:11] LABS: Calcium 7.7 MG/DL (8.5-10.1); Osmolality,Calculated 309.7 MOS/KG (273-304); Potassium 4.9 MMOL/L (3.5-5.1)
[2022-10-24] MEDS: hydrALAZINE 20 MG/1 ML VIAL IV PRN (06:13)
[2022-10-24] MEDS: FAMOTIDINE 20 MG/2 ML VIAL IV SCH (09:30)
[2022-10-24] MEDS: DOCUSATE SODIUM 100 MG CAPSULE PO SCH ×2 (09:30→21:28)
[2022-10-24] MEDS: APIXABAN 5 MG TABLET PO SCH ×2 (09:30→21:29)
[2022-10-24] MEDS ORDERED: DOXAZOSIN 2 MG TABLET PO SCH (09:30)
[2022-10-24] MEDS: DOXAZOSIN 1 MG TABLET PO SCH ×2 (09:30→10:24)
[2022-10-24] MEDS: amLODIPine 10 MG TABLET PO SCH (09:31)
[2022-10-24] MEDS: carvediloL 25 MG TABLET PO SCH ×2 (09:31→16:27)
[2022-10-24] MEDS: hydrALAZINE 25 MG TABLET PO SCH ×3 (09:32→21:29)
[2022-10-24] MEDS ORDERED: PHENOL 1.4% THROAT SPRAY 177 ML BOTTLE PO PRN (10:26)
[2022-10-25 05:05] LABS: Basophils % 0.3 % (0.0-0.8); Eosinophils # 0.1 10*3/uL (0.0-0.87); Eosinophils % 0.8 % (0.00-10.9); Hematocrit 29.5 VOL% (42.0-52.0); Hemoglobin 9.3 GM/DL (14.0-18.0); Immature Granulocytes % 0.5 %; Immature Granulocytes Absolute 0.03 #; Lymphocytes # 0.8 10*3/uL (1.4-4.0); Lymphocytes % 13.6 % (21.2-54.2); Mean Corpuscular HGB Conc 31.5 GM/DL (32-36); Mean Corpuscular Volume 98.7 FL (87-102); Mean Platelet Volume 10.8 FL (9.6-12.0); Monocytes # 0.5 10*3/uL (0.11-0.8); Neutrophils % 76.8 % (38.7-73.9); Platelet Count 195 T/CUMM (130-400); Red Blood Count 2.99 MC/CUMM (3.8-5.5); Red Cell Distribution Width 16.4 % (9.3-17.3)
[2022-10-25 05:12] LABS: Arterial Base Excess iSTAT -6 MMOL/L (-2.5-2.5); Arterial Bicarbonate iSTAT 18.3 MMOL/L (20-26); Arterial O2 Saturation iSTAT 94 % (95-100); Arterial PCO2 iSTAT 32 MM HG (35-48); Arterial PO2 iSTAT 72 MM HG (80-95); Arterial Total CO2 iSTAT 19 MMO/L (23-27); Arterial pH iSTAT 7.365 (7.35-7.45)
[2022-10-25 05:22] LABS: Calcium 7.7 MG/DL (8.5-10.1); Osmolality,Calculated 304.3 MOS/KG (273-304); Potassium 4.5 MMOL/L (3.5-5.1)
[2022-10-25] MEDS ORDERED: FAMOTIDINE 20 MG/2 ML VIAL IV SCH (09:00)
[2022-10-25] MEDS: carvediloL 25 MG TABLET PO SCH ×2 (10:03→16:34)
[2022-10-25] MEDS: hydrALAZINE 25 MG TABLET PO SCH ×3 (10:03→21:02)
[2022-10-25] MEDS: amLODIPine 10 MG TABLET PO SCH (10:03)
[2022-10-25] MEDS: DOCUSATE SODIUM 100 MG CAPSULE PO SCH ×2 (10:03→21:01)
[2022-10-25] MEDS: DOXAZOSIN 1 MG TABLET PO SCH (10:03)
[2022-10-25] MEDS: APIXABAN 5 MG TABLET PO SCH ×2 (10:03→21:02)
[2022-10-25] MEDS: traMADol 50 MG TABLET PO SCH ×2 (12:33→21:02)
[2022-10-26 05:53] LABS: Basophils % 0.6 % (0.0-0.8); Eosinophils # 0.1 10*3/uL (0.0-0.87); Eosinophils % 1.5 % (0.00-10.9); Hematocrit 28.9 VOL% (42.0-52.0); Hemoglobin 9.2 GM/DL (14.0-18.0); Immature Granulocytes % 0.6 %; Immature Granulocytes Absolute 0.03 #; Lymphocytes % 18.9 % (21.2-54.2); Mean Corpuscular HGB Conc 31.8 GM/DL (32-36); Mean Corpuscular Volume 98.6 FL (87-102); Mean Platelet Volume 10.8 FL (9.6-12.0); Monocytes # 0.5 10*3/uL (0.11-0.8); Monocytes % 9.4 % (1.7-12.7); Platelet Count 193 T/CUMM (130-400); Red Blood Count 2.93 MC/CUMM (3.8-5.5); White Blood Count 5.2 T/CUMM (4-12)
[2022-10-26 05:58] LABS: Osmolality,Calculated 304.1 MOS/KG (273-304); Potassium 4.3 MMOL/L (3.5-5.1)
[2022-10-26] MEDS: DOXAZOSIN 1 MG TABLET PO SCH (08:49)
[2022-10-26] MEDS: traMADol 50 MG TABLET PO SCH (08:50)
[2022-10-26] MEDS: carvediloL 25 MG TABLET PO SCH (08:50)
[2022-10-26] MEDS: amLODIPine 10 MG TABLET PO SCH (08:50)
[2022-10-26] MEDS: APIXABAN 5 MG TABLET PO SCH (08:51)
[2022-10-26] MEDS: hydrALAZINE 25 MG TABLET PO SCH (08:51)
[2022-10-26] MEDS: DOCUSATE SODIUM 100 MG CAPSULE PO SCH (08:55)
[2022-10-26] MEDS ORDERED: PANTOPRAZOLE 40 MG TABLET PO SCH (09:00)
[2022-10-26 12:56] VITALS: BP 138/65
[2022-10-27] MEDS ORDERED: APIXABAN 5 MG TABLET PO SCH (09:00)
== END 2022-10-26 12:37 | disposition home or self-care (01) | DRG 208 ==
LOC: N.ED 08:27 → N.EDINP 10:21 → SUATTDRO 10:21 → N.CC 10:22 → N.TELEN 10-24 16:44
PROVIDERS: ADMIT Internal Medicine; ATTEND Internal Medicine